=== PATIENT | male | born 1965 | race American Indian/Alaskan Native ===

== ENCOUNTER 2017-11-15 02:00 | Emergency (ER) | payer MEDICAID ==
[2017-11-15 03:20] VITALS: BP 161/109
[2017-11-15 03:48] LABS: Basophils % (Auto) 0.5 % (0.0-1.8); Hematocrit 42.4 % (35.5-45.6); Hemoglobin 14.2 gm/dl (11.8-15.2); Lymphocytes # (Auto) 1.8 K/mm3 (1.2-5.4); Lymphocytes % (Auto) 44.3 % (13.4-35.0); Mean Corpuscular HGB Conc 34 % (32-34); Mean Corpuscular Hemoglobin 30 pg (28-32); Mean Corpuscular Volume 90 fl (84-94); Monocytes # (Auto) 0.4 K/mm3 (0.0-0.8); Monocytes % (Auto) 10.2 % (0.0-7.3); Platelet Count 206 K/mm3 (140-440); Red Blood Count 4.71 M/mm3 (3.65-5.03); Red Cell Distribution Width 15.4 % (13.2-15.2)
[2017-11-15 04:19] LABS: BUN/Creatinine Ratio 10; Blood Urea Nitrogen 8 mg/dL (9-20); Calcium 8.6 mg/dL (8.4-10.2); Hemolysis Index 6
== END 2017-11-15 03:30 | disposition left against medical advice (07) ==
LOC: ED 02:00
DX: R07.89 Other chest pain (principal); Z53.21 Procedure and treatment not carried out due to patient leaving prior to being seen by health care provider
CPT/HCPCS: 36415; 80048; 84484; 85025; 93005; 93010; G0480; 80320

== ENCOUNTER 2017-11-15 14:52 | Emergency (ER) | payer MEDICAID ==
[2017-11-15] MEDS ORDERED: ASPIRIN PO ONE (15:03)
[2017-11-15 15:44] LABS: Basophils % (Auto) 0.3 % (0.0-1.8); Eosinophils % (Auto) 0.6 % (0.0-4.3); Hematocrit 40.9 % (35.5-45.6); Hemoglobin 13.5 gm/dl (11.8-15.2); Lymphocytes # (Auto) 1.3 K/mm3 (1.2-5.4); Lymphocytes % (Auto) 34.3 % (13.4-35.0); Mean Corpuscular HGB Conc 33 % (32-34); Mean Corpuscular Hemoglobin 30 pg (28-32); Mean Corpuscular Volume 90 fl (84-94); Monocytes # (Auto) 0.3 K/mm3 (0.0-0.8); Monocytes % (Auto) 7.1 % (0.0-7.3); Platelet Count 206 K/mm3 (140-440); Red Blood Count 4.53 M/mm3 (3.65-5.03); Red Cell Distribution Width 15.4 % (13.2-15.2)
[2017-11-15 16:00] LABS: BUN/Creatinine Ratio 10; Blood Urea Nitrogen 7 mg/dL (9-20); Calcium 8.2 mg/dL (8.4-10.2); Hemolysis Index 1
[2017-11-15] MEDS ORDERED: APRESOLINE IV ONE (16:35)
[2017-11-15] MEDS ORDERED: TYLENOL PO ONE (16:36)
--- NOTE | 2017-11-15 16:42 | XRay Report ---
FINAL REPORT PROCEDURE: Chest. TECHNIQUE: Portable AP view. HISTORY: Chest pain. COMPARISON: No prior studies are available for comparison. FINDINGS: The heart and mediastinum appear normal. The lungs are clear and well expanded. There are no pleural effusions. The soft tissues and regional skeleton are unremarkable. IMPRESSION: Negative portable chest.
[2017-11-15 16:55] LABS: Bacteria,Urine 1+ /HPF (Negative); Bilirubin,Urine NEG (Negative); Blood,Urine SM (Negative); Color,Urine Straw (Yellow); Urobilinogen,Urine < 2.0 mg/dL (<2.0); WBC,Urine < 1.0 /HPF (0.0-6.0)
[2017-11-15 17:06] LABS: Amphetamine Screen,Urine PRESUMPTIVE NEGATIVE; Benzodiazepines Screen,Urine PRESUMPTIVE NEGATIVE; Cocaine Screen,Urine PRESUMPTIVE NEGATIVE; Methadone Screen,Urine PRESUMPTIVE NEGATIVE; Opiate Screen,Urine PRESUMPTIVE NEGATIVE
[2017-11-15 17:27] LABS: Cannabinoid Screen,Urine PRESUMPTIVE POSITIVE
--- NOTE | 2017-11-15 18:37 | Emergency Department Report ---
HPI - General Chief Complaint: Chest Pain Time Seen by Provider: 11/15/17 15:59 - HPI HPI: The patient is a 52-year-old male presents for evaluation of chest pain. The patient reports chest pain for the past one month, recurring and constant since last night, greater than 8 hours prior to my evaluation, currently mild in severity, aching in quality, and is exacerbated with movement or coughing. The patient has secondary complaint of dysuria also for the past month, moderate severity, and associated with increased urinary frequency. The patient denies fever, neck pain, parasthesias, dyspnea, cough, hemoptysis, palpitations, dizziness, syncope, unilateral leg swelling, calf muscle pain. Patient also denies cocaine use, history of DVT or PE, recent immobilization, or history of cancer. ED Past Medical Hx - Past Medical History Previous Medical History?: Yes Additional medical history: Fungal infection, kidney disease. Rock Jatin syndrome - Surgical History Past Surgical History?: No - Social History Smoking Status: Current Every Day Smoker Substance Use Type: Alcohol - Medications Home Medications: Home Medications Medication Instructions Recorded Confirmed Last Taken Type Econazole 1% [Spectazole] 1 applicatio TP BID 7 Days #1 tube 11/14/17 11/15/17 Unknown Rx HYDROcodone/APAP 7.5-325 [[place] 1 each PO Q6HR PRN #14 tablet 11/14/17 11/15/17 Unknown Rx 7.5/325] cephALEXin [Keflex] 500 mg PO Q8HR 10 Days #30 cap 11/14/17 11/15/17 Unknown Rx ED Review of Systems ROS: Stated complaint: CHEST PAIN Other details as noted in HPI Constitutional: denies: fever ENT: denies: throat or neck pain Respiratory: denies: cough, shortness of breath Cardiovascular: reports: chest pain Endocrine: denies unexplained weight loss or gain Gastrointestinal: denies: abdominal pain, nausea Genitourinary: denies: dysuria Musculoskeletal: denies: leg swelling Skin: denies: rash Neurological: denies: headache Hematological/Lymphatic: denies: easy bleeding or easy bruising Psych: denies sadness or hopelessness Physical Exam - Physical Exam Vital Signs: Vital Signs 11/15/17 11/15/17 11/15/17 15:00 16:43 16:44 Temperature 98.6 F Pulse Rate 105 H 65 Respiratory 16 16 Rate Blood Pressure 201/103 152/91 Blood Pressure 152/91 [Left] O2 Sat by Pulse 97 96 Oximetry Physical Exam: General: well-nourished, well-developed, no acute distress Head: Normocephalic, atraumatic Eyes: normal sclera ENT: Mucous membranes are pale and dry Neck: trachea midline, neck supple, No neck stiffness, no cervical adenopathy Respiratory: Breath sounds equal bilaterally, no wheezing, rales, or rhonchi Cardio: S1 and S2 present, no murmurs, rubs, gallops, capillary refill is delayed Abdomen: Normoactive bowel sounds, soft abdomen, no rigidity, no guarding or rebound tenderness Chest WALL/Back: No tenderness to palpation of the chest wall, no CVA tenderness with percussion Musc: No pitting edema Skin: No rash Neuro: no facial drooping, normal speech Psych: Normal affect ED Course Vital Signs 11/15/17 11/15/17 11/15/17 15:00 16:43 16:44 Temperature 98.6 F Pulse Rate 105 H 65 Respiratory 16 16 Rate Blood Pressure 201/103 152/91 Blood Pressure 152/91 [Left] O2 Sat by Pulse 97 96 Oximetry ED Medical Decision Making - Lab Data Result diagrams: 11/15/17 15:28 11/15/17 15:28 - Medical Decision Making The patient was seen and examined by myself. The patient is placed on a groundwater monitoring technician and continuous pulse ox. On initial evaluation, the patient was found to be in no distress. EKG was negative for findings suggestive of acute cardiac infarct. Labs and imaging are obtained. The patient is given pain medicine. Chest x-ray is negative for pneumothorax, focal consolidation, pulmonary vascular congestion, pleural effusion, or other obvious acute cardiopulmonary disease process. Lab results revealed elevated alcohol level of 0.28, and otherwise labs were non-concerning including levels of troponin, WBC, hemoglobin, hematocrit, electrolytes, renal function, and urinalysis. The patient is given a banana bag infusion for treatment of his dehydration. The patient was reevaluated and reported that their symptoms were markedly improved. As the patient has a ROSELIA risk score less than 2, and a well's score less than 2, the patient is at low risk of ACS or pulmonary emboli etiology of their symptoms. The patient is stable for discharge with outpatient follow-up. The patient is given follow-up and return instructions. The patient expressed understanding and agreed with the plan. The patient is discharged in stable condition. Critical care attestation.: If time is entered above; I have spent that time in minutes in the direct care of this critically ill patient, excluding procedure time. ED Disposition Clinical Impression: Acute chest pain, Dehydration, Dysuria, Polysubstance abuse Alcohol intoxication Qualifiers: Complication of substance-induced condition: uncomplicated Qualified Code(s): F10.920 - Alcohol use, unspecified with intoxication, uncomplicated Disposition: DC-01 TO HOME OR SELFCARE Is pt being admited?: No Does the pt Need Aspirin: No Condition: Stable Instructions: Chest Pain (ED) Referrals: PRIMARY CARE, [Primary Care Provider] - 3-5 Days Time of Disposition: 18:47
[2017-11-15] MEDS ORDERED: VITAMIN B-1 100 MG, FOLVITE 1 MG, INFUVITE 10 ML in NACL 0.9% 1000 ML 1,000 ML IV ONE (19:00)
[2017-11-16 10:55] VITALS: BP 124/82
== END 2017-11-16 10:55 | disposition home or self-care (01) ==
LOC: ED 14:52
DX: R07.89 Other chest pain (principal); E86.0 Dehydration; R30.0 Dysuria; R35.0 Frequency of micturition; F10.920 Alcohol use, unspecified with intoxication, uncomplicated; F19.10 Other psychoactive substance abuse, uncomplicated; F17.200 Nicotine dependence, unspecified, uncomplicated
CPT/HCPCS: 36415; 71045; 80048; 80307; 81001; 84484; 85025; 93005; 93010; 96365; 96366; 99285; G0480; J3411; J7030; 80320

== ENCOUNTER 2019-06-09 20:36 | Emergency (ER) | payer MEDICAID ==
[2019-06-09] MEDS ORDERED: SODIUM CHLORIDE 0.9% 1000 ML 1,000 ML IV ONE (22:14)
[2019-06-09] MEDS ORDERED: propofoL 200 MG/20 ML VIAL IV ONE (22:14)
[2019-06-09] MEDS ORDERED: KETAMINE 500 MG/5 ML VIAL MDV IV ONE (22:14)
--- NOTE | 2019-06-09 22:16 | Emergency Department Report ---
HPI - General Chief Complaint: Extremity Injury, Upper Time Seen by Provider: 06/09/19 22:09 - HPI HPI: 53-year-old -[place] male presents to the emergency department with complaint of a 2-day history of right shoulder pain and what appears to be a right shoulder dislocation. The patient was working on a roof when a large pack of shingles came down and hit him on the shoulder. He has been having decreased range of motion and pain since that time. He is left-hand dominant. Otherwise denies any past medical history. He has not taken anything for his symptoms prior to presentation today. ED Past Medical Hx - Past Medical History Additional medical history: Fungal infection, kidney disease. Rock Jatin syndrome - Social History Smoking Status: Current Every Day Smoker Substance Use Type: None - Medications Home Medications: Home Medications Medication Instructions Recorded Confirmed Last Taken Type Econazole 1% [Spectazole] 1 applicatio TP BID 7 Days #1 tube 11/14/17 11/15/17 Unknown Rx HYDROcodone/APAP 7.5-325 [[place] 1 each PO Q6HR PRN #14 tablet 11/14/17 11/15/17 Unknown Rx 7.5/325] cephALEXin [Keflex] 500 mg PO Q8HR 10 Days #30 cap 11/14/17 11/15/17 Unknown Rx ED Review of Systems ROS: Stated complaint: RT SIDE PAIN Other details as noted in HPI Comment: All other systems reviewed and negative Constitutional: denies: chills, fever Eyes: denies: eye pain, vision change ENT: denies: ear pain, throat pain Respiratory: denies: cough, shortness of breath Cardiovascular: denies: chest pain, palpitations Gastrointestinal: denies: abdominal pain, vomiting Genitourinary: denies: dysuria, discharge Musculoskeletal: arthralgia. denies: back pain Skin: denies: rash, lesions Neurological: denies: numbness, paresthesias Physical Exam - Physical Exam Vital Signs: Vital Signs 06/09/19 21:20 Temperature 98.3 F Pulse Rate 94 H Respiratory 20 Rate Blood Pressure 139/93 O2 Sat by Pulse 96 Oximetry Physical Exam: GENERAL: The patient is well-developed well-nourished. HENT: Normocephalic. Atraumatic. Patient has moist mucous membranes. EYES: Extraocular motions are intact. NECK: Supple. Trachea is midline. CHEST/LUNGS: Clear to auscultation. There is no respiratory distress noted. HEART/CARDIOVASCULAR: Regular. There is no tachycardia. ABDOMEN: Abdomen is soft, nontender. Patient has normal bowel sounds. SKIN: Skin is warm and dry. NEURO: The patient is awake, alert, and oriented. The patient is cooperative. The patient has no focal neurologic deficits. Normal speech. MUSCULOSKELETAL: Tenderness to palpation of the right shoulder. The right upper extremity is held in internal rotation against the body. Decreased range of motion of the right arm secondary to shoulder pain. Radial pulse +2/4 and capillary refill less than 2 seconds to the affected right upper extremity. ED Course Vital Signs 06/09/19 21:20 Temperature 98.3 F Pulse Rate 94 H Respiratory 20 Rate Blood Pressure 139/93 O2 Sat by Pulse 96 Oximetry - Moderate Sedation Indications: fracture/dislocation redu ASA Class: I Mallampati Airway Score: 1 Time of Last PO Intake: 18:00 Preparation: impact retail service merchandiser applied, pulse oximeter, capnometry used, supplemental O2 applied, suction/airway equipment at bedside, IV secured Ketamine: IV Ketamine Dose: 40 IV Propofol Dose (mgs): 30 Complications: none Patient Tolerated Procedure: well - Orthopedic Joint Reduction Joint #1 Consent Obtained: verbal consent, written consent Time Out Performed: Yes Side: right Joint Reduction Location: shoulder Analgesia: moderate sedation Shoulder Technique Used (if applicable): traction/counter-traction, external rotation Post-Reduction Neuro Exam: intact Post-Reduction Vascular Exam: intact Post Reduction X-Ray Obtained: Yes Post Reduction X-Ray Results: reduced Splint Applied: Yes Patient Tolerated Procedure: well ED Medical Decision Making - Lab Data Result diagrams: 06/10/19 00:32 06/10/19 00:32 - Radiology Data Radiology results: image reviewed interpreted by me: X-ray of the right shoulder shows a anterior right shoulder dislocation. Postreduction x-ray shows appropriate placement of the humeral head into the glenohumeral joint. - Medical Decision Making This patient presents with a 2-day history of right shoulder dislocation. He is neurovascularly intact. X-ray confirmed an anterior dislocation. A conscious sedation was done per the procedure section with reduction of the dislocation. The patient is neurovascular intact after this procedure as well. Postpro cedural x-ray confirms appropriate reduction. The patient is slightly intoxicated with a blood alcohol level of 0.12. However he is arousable, oriented and appears to have come out of the conscious sedation. The patient will receive a liter of IV fluid resuscitation and then will be discharged to the care of a friend or family member. Critical Care Time: No Critical care attestation.: If time is entered above; I have spent that time in minutes in the direct care of this critically ill patient, excluding procedure time. ED Disposition Clinical Impression: Shoulder dislocation Qualifiers: Encounter type: initial encounter Laterality: right Qualified Code(s): S43.004A - Unspecified dislocation of right shoulder joint, initial encounter Alcohol intoxication Qualifiers: Complication of substance-induced condition: uncomplicated Qualified Code(s): F10.920 - Alcohol use, unspecified with intoxication, uncomplicated Hypertension Qualifiers: Hypertension type: essential hypertension Qualified Code(s): I10 - Essential (primary) hypertension Disposition: TO HOME OR SELFCARE Is pt being admited?: No Condition: Stable Instructions: Shoulder Dislocation (ED), Moderate Sedation (ED), Hypertension (ED) Additional Instructions: I have given you a referral for a local orthopedist, Dr. Ovalle, to follow-up regarding your shoulder dislocation. Return to the emergency department with any worsening of your symptoms or any acute distress. Referrals: GIL DOS SANTOS MD [Primary Care Provider] - 2-3 Days NASRA OVALLE MD [Staff Physician] - 2-3 Days Time of Disposition: 01:15
--- NOTE | 2019-06-09 22:35 | XRay Report ---
RIGHT SHOULDER 2 VIEWS INDICATION / CLINICAL INFORMATION: Right shoulder pain and swelling COMPARISON: None available. FINDINGS: BONES / JOINT(S): There is inferior and medial displacement of the right humeral head in relationship to the glenoid. I do not identify an associated fracture. There are mild degenerative changes involv ing the acromioclavicular joint. No other abnormality is identified. SOFT TISSUES: No significant abnormality. ADDITIONAL FINDINGS: The visualized portion of the right lung is clear. IMPRESSION: Anterior dislocation of the right shoulder. Signer Name: Turner Ac MD Signed: 06/09/2019 10:30 PM Workstation Name: [id number]
--- NOTE | 2019-06-09 23:58 | XRay Report ---
RIGHT SHOULDER 1 VIEW 11:36 PM INDICATION / CLINICAL INFORMATION: Postreduction. COMPARISON: Earlier today at 10:00 PM. FINDINGS: BONES / JOINT(S): The previously described anterior dislocation of the glenohumeral joint has been re duced. No associated fracture is seen. SOFT TISSUES: No significant abnormality. ADDITIONAL FINDINGS: None. IMPRESSION: Interval reduction of the previously described anterior dislocation of the right shoulder . Signer Name: Turner Ac MD Signed: 06/09/2019 11:54 PM Workstation Name: [id number]
[2019-06-10 00:50] LABS: Basophils % (Auto) 0.6 % (0.0-1.8); Eosinophils % (Auto) 0.9 % (0.0-4.3); Hemoglobin 13.1 gm/dl (11.8-15.2); Lymphocytes # (Auto) 1.3 K/mm3 (1.2-5.4); Lymphocytes % (Auto) 23.9 % (13.4-35.0); Mean Corpuscular HGB Conc 33 % (32-34); Mean Corpuscular Volume 91 fl (84-94); Monocytes # (Auto) 0.5 K/mm3 (0.0-0.8); Monocytes % (Auto) 8.7 % (0.0-7.3); Platelet Count 220 K/mm3 (140-440); Red Blood Count 4.39 M/mm3 (3.65-5.03)
[2019-06-10 01:05] LABS: BUN/Creatinine Ratio 7; Blood Urea Nitrogen 4 mg/dL (9-20); Calcium 8.3 mg/dL (8.4-10.2); Hemolysis Index 17
[2019-06-10] MEDS ORDERED: SODIUM CHLORIDE 0.9% 1000 ML 1,000 ML IV ONE (01:11)
[2019-06-10 04:52] VITALS: BP 173/92
== END 2019-06-10 03:40 | disposition home or self-care (01) ==
LOC: ED 20:36
DX: S43.004A Unspecified dislocation of right shoulder joint, initial encounter (principal); F10.920 Alcohol use, unspecified with intoxication, uncomplicated; I10 Essential (primary) hypertension; F17.200 Nicotine dependence, unspecified, uncomplicated; Z88.2 Allergy status to sulfonamides; Z79.899 Other long term (current) drug therapy; W22.8XXA Striking against or struck by other objects, initial encounter; Y93.89 Activity, other specified; Y92.89 Other specified places as the place of occurrence of the external cause; Y99.8 Other external cause status
CPT/HCPCS: 23650; 36415; 73020; 73030; 80048; 85025; 96374; 96375; 99284; J2704; J7030; 80320; G0480

== ENCOUNTER 2020-08-26 15:56 | Emergency (ER) | payer MEDICAID ==
--- NOTE | 2020-08-26 17:40 | Event Note ---
ED Screening Note Date of service: 08/26/20 Time: 17:36 ED Screening Note: 55 y/o male pt w/ hx of alcohol use presents to ED w/ complaints of hematemesis starting last night. Pt estimates he experienced approximately three episodes accompanied by bright red blood. Admits to alcohol consumption prior to onset of hematemesis. Pt is not anticoagulated. States he has been taking his cousin's Amoxicillin for two weeks in an attempt to self-treat an "infection" on his hands and feet. No black/bloody stools. General: Awake, appropriately interactive, no acute distress. Neck: Supple. Full range of motion intact. Cardiovascular: Normal peripheral perfusion. Pulmonary: No respiratory distress. Patient is speaking normally without use of accessory muscles. Neurological: No facial asymmetry. Speech is clear. Follows commands. Patient is alert and oriented. Musculoskeletal: Moves all four extremities spontaneously with normal range of motion. Psych: Cooperative. Appropriate mood and affect. I have greeted and performed a focused rapid initial assessment of this patient. A comprehensive ED assessment and evaluation of the patient, analysis of all test results, and completion of the medical decision-making process will be conducted by additional ED providers. This initial assessment/diagnostic orders/clinical plan/treatment(s) is/are subject to change based on patients health status, clinical progression and re-assessment. Further treatment and workup at subsequent clinical provider's discretion. Patient/guardian urged not to elope from the ED as their condition may be serious if not clinically assessed and managed.
--- NOTE | 2020-08-26 18:13 | XRay Report ---
CHEST 2 VIEWS INDICATION: hematemesis. COMPARISON: FINDINGS: Support devices: None. Heart: Within normal limits. Lungs: No acute air space or interstitial disease. Pleura: No significant pleural effusion. No pneumothorax. Additional findings: None. IMPRESSION: 1. No acute findings. Signer Name: Tre Gaona MD Signed: 08/26/2020 6:09 PM Workstation Name: [id number]
[2020-08-26 19:03] LABS: Basophils # (Auto) 0.1 K/mm3 (0.0-0.1); Basophils % (Auto) 1.9 % (0.0-1.8); Eosinophils % (Auto) 1.1 % (0.0-4.3); Hematocrit 34.6 % (35.5-45.6); Hemoglobin 12.5 gm/dl (11.8-15.2); Lymphocytes % (Auto) 26.5 % (13.4-35.0); Mean Corpuscular HGB Conc 36 % (32-34); Mean Corpuscular Volume 102 fl (84-94); Monocytes # (Auto) 0.3 K/mm3 (0.0-0.8); Monocytes % (Auto) 8.3 % (0.0-7.3); Platelet Count 229 K/mm3 (140-440); Red Cell Distribution Width 15.6 % (13.2-15.2)
[2020-08-26 19:20] LABS: INR 0.89 (0.87-1.13)
[2020-08-26 19:21] LABS: Partial Thromboplastin Time 34.1 Sec. (24.2-36.6)
[2020-08-26 19:28] LABS: Alanine Aminotransferase 28 units/L (7-56); Albumin 3.8 g/dL (3.9-5); Blood Urea Nitrogen 6 mg/dL (9-20); Calcium 8.9 mg/dL (8.4-10.2); Hemolysis Index 10
[2020-08-26 19:31] LABS: BUN/Creatinine Ratio 9
--- NOTE | 2020-08-26 21:25 | Emergency Department Report ---
HPI - General Chief Complaint: GI Bleed Time Seen by Provider: 08/26/20 20:20 - HPI HPI: Room 3 The patient is a 55-year-old male present with a chief complaint of vomiting with blood. Patient states the symptoms occurred last night approximate 4 hours after eating spaghetti. The patient states he had episode of nausea vomiting and noticed streaks of blood in the vomitus. The patient states again this morning at approximately 07: 00 he had a second episode of vomiting while in the bed and again noticed streaks of blood in the vomitus. Patient denies abdominal pain. Patient states his last bowel movement occurred last night and was within normal limits. Patient denies bright red blood per rectum or melena. Patient also complains of pain in his hands and feet which he's suffered from for several years ED Past Medical Hx - Past Medical History Previous Medical History?: Yes Additional medical history: Fungal infection, kidney disease. 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 Skin infection to hands and lips - Surgical History Past Surgical History?: No - Family History Family history: no significant - Social History Smoking Status: Current Some Day Smoker (Cigars) Substance Use Type: None (Denies illicit drug use), Alcohol (Occasional) - Medications Home Medications: Home Medications Medication Instructions Recorded Confirmed Last Taken Type Econazole 1% [Spectazole] 1 applicatio TP BID 7 Days #1 tube 11/14/17 11/15/17 Unknown Rx HYDROcodone/APAP 7.5-325 [[place] 1 each PO Q6HR PRN #14 tablet 11/14/17 11/15/17 Unknown Rx 7.5/325] cephALEXin [Keflex] 500 mg PO Q8HR 10 Days #30 cap 11/14/17 11/15/17 Unknown Rx Famotidine [Pepcid] 20 mg PO BID #20 tablet 08/26/20 Unknown Rx HYDROcodone/APAP 5-325 [[place] 1 - 2 each PO Q6HR PRN #10 tablet 08/26/20 Unknown Rx 5/325] ED Review of Systems ROS: Stated complaint: FEET SWELLING, VOMITING BLOOD Other details as noted in HPI Constitutional: fever Eyes: denies: eye pain ENT: denies: throat pain Respiratory: no symptoms reported Cardiovascular: denies: chest pain Endocrine: no symptoms reported Gastrointestinal: nausea, vomiting, hematemesis. denies: abdominal pain, melena, hematochezia Genitourinary: denies: dysuria Musculoskeletal: denies: back pain Neurological: denies: headache Physical Exam - Physical Exam Vital Signs: Vital Signs 08/26/20 17:25 Temperature 98.4 F Pulse Rate 77 Respiratory 18 Rate Blood Pressure 138/80 O2 Sat by Pulse 95 Oximetry Physical Exam: GENERAL: The patient is well-developed well-nourished male lying on stretcher not appearing to be in acute distress. [] HEENT: Normocephalic. Atraumatic. Extraocular motions are intact. Patient has moist mucous membranes. NECK: Supple. Trachea midline CHEST/LUNGS: Clear to auscultation. There is no respiratory distress noted. HEART/CARDIOVASCULAR: Regular. There is no tachycardia. There is no gallop rub or murmur. ABDOMEN: Abdomen is soft, nontender. Patient has normal bowel sounds. There is no abdominal distention. SKIN: There is no rash. There is no edema. There is no diaphoresis. NEURO: The patient is awake, alert, and oriented. The patient is cooperative. The patient has no focal neurologic deficits. The patient has normal speech MUSCULOSKELETAL:There is no evidence of acute injury. RECTAL: Guaiac negative brown stool ED Course Vital Signs 08/26/20 17:25 Temperature 98.4 F Pulse Rate 77 Respiratory 18 Rate Blood Pressure 138/80 O2 Sat by Pulse 95 Oximetry ED Medical Decision Making - Lab Data Result diagrams: 08/26/20 18:32 08/26/20 18:32 Laboratory Tests 08/26/20 08/26/20 08/26/20 18:30 18:32 18:32 WBC 3.9 L RBC 3.40 L Hgb 12.5 Hct 34.6 L MCV 102 H MCH 37 H MCHC 36 H RDW 15.6 H Plt Count 229 Lymph % (Auto) 26.5 [place] % (Auto) 8.3 H Eos % (Auto) 1.1 Baso % (Auto) 1.9 H Lymph # (Auto) 1.0 L [place] # (Auto) 0.3 Eos # (Auto) 0.0 Baso # (Auto) 0.1 Seg Neutrophils % 62.2 Seg Neutrophils # 2.4 PT 12.6 INR 0.89 APTT 34.1 Sodium Potassium Chloride Carbon Dioxide Anion Gap BUN Creatinine Estimated GFR BUN/Creatinine Ratio Glucose Calcium Magnesium Total Bilirubin AST ALT Alkaline Phosphatase Ammonia Total Protein Albumin Albumin/Globulin Ratio Lipase Plasma/Serum Alcohol Blood Type O NEGATIVE Antibody Screen Negative 08/26/20 08/26/20 08/26/20 18:32 18:32 18:32 WBC RBC Hgb Hct MCV MCH MCHC RDW Plt Count Lymph % (Auto) [place] % (Auto) Eos % (Auto) Baso % (Auto) Lymph # (Auto) [place] # (Auto) Eos # (Auto) Baso # (Auto) Seg Neutrophils % Seg Neutrophils # PT INR APTT Sodium 138 Potassium 3.5 L Chloride 103.6 Carbon Dioxide 20 L Anion Gap 18 BUN 6 L Creatinine 0.7 L Estimated GFR > 60 BUN/Creatinine Ratio 9 Glucose 94 Calcium 8.9 Magnesium 1.60 L Total Bilirubin < 0.20 AST 34 ALT 28 Alkaline Phosphatase 104 Ammonia 54.0 Total Protein 7.4 Albumin 3.8 L Albumin/Globulin Ratio 1.1 Lipase 44 Plasma/Serum Alcohol 0.02 Blood Type Antibody Screen - Radiology Data Radiology results: report reviewed (Chest x-ray), image reviewed (Chest x-ray) interpreted by me: Chest x-ray-no definite focal infiltrates, no pneumothorax. No foreign body seen [facility] [address] [place] [address] XRay Report Signed Patient: KYLE MIRANDA MR#: [id number] : 1965 Acct:[id number] Age/Sex: 55 / M ADM Date: 08/26/20 Loc: ED Attending Dr: Ordering Physician: HERNAN MULLER Date of Service: 08/26/20 Procedure(s): XR chest routine 2V Accession Number(s): [id number] cc: HERNAN MULLER Fluoro Time In Minutes: CHEST 2 VIEWS INDICATION: hematemesis. COMPARISON: FINDINGS: Support devices: None. Heart: Within normal limits. Lungs: No acute air space or interstitial disease. Pleura: No significant pleural effusion. No pneumothorax. Additional findings: None. IMPRESSION: 1. No acute findings. Signer Name: Tre Gaona MD Signed: 08/26/2020 6:09 PM Workstation Name: [id number] Transcribed By: WG Dictated By: Tre Gaona MD Electronically Authenticated By: Tre Gaona MD Signed Date/Time: 08/26/201808 DD/ 08 TD/TT: Print Cancel - Differential Diagnosis Gastritis, peptic ulcer disease, Critical care attestation.: If time is entered above; I have spent that time in minutes in the direct care of this critically ill patient, excluding procedure time. ED Disposition Clinical Impression: Nausea & vomiting, Gastritis Disposition: - TO HOME OR SELFCARE Is pt being admited?: No Does the pt Need Aspirin: No Condition: Stable Instructions: Nausea and Vomiting, Adult, Gastritis, Adult, [id number] Additional Instructions: Return to the emergency department should you develop worsening symptoms, inability to tolerate food or liquids, high fever or any other concerns Prescriptions: HYDROcodone/APAP 5-325 [[place] 5/325] 1 - 2 each PO Q6HR PRN #10 tablet PRN Reason: Pain Famotidine [Pepcid] 20 mg PO BID #20 tablet Referrals: DECLAN SEXTON MD [Staff Physician] - 3-5 Days (Dr. Sexton is a gastroenter ologist. Please follow-up with him for further evaluation) PRIMARY MD LEVON [Primary Care Provider] - 3-5 Days MELISSA MOREAU MD [Staff Physician] - 3-5 Days (Dr Moreau is a commercial driver's license driver. Please follow-up with him for further evaluation) Forms: Accompanied Note Time of Disposition: 22:00
[2020-08-26 21:41] VITALS: BP 150/87
== END 2020-08-26 22:44 | disposition home or self-care (01) ==
LOC: ED 15:56
DX: K29.70 Gastritis, unspecified, without bleeding (principal); R11.2 Nausea with vomiting, unspecified; F17.200 Nicotine dependence, unspecified, uncomplicated; Z79.899 Other long term (current) drug therapy; Z88.2 Allergy status to sulfonamides
CPT/HCPCS: 36415; 71046; 80053; 80320; 82140; 82271; 83690; 83735; 85025; 85610; 85730; 86850; 86900; 86901; G0480

== ENCOUNTER 2021-10-22 15:25 | Emergency (ER) | payer MEDICAID ==
[2021-10-22] MEDS ORDERED: ONDANSETRON 4 MG/2 ML INJ IM ONE (15:58)
[2021-10-22] MEDS ORDERED: fentaNYL 100 MCG/2 ML INJ IM ONE (15:58)
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
[2021-10-22] MEDS ORDERED: BACITRACIN/POLYMYXIN B OINT 28.35 GM TP ONE (18:34)
[2021-10-22] MEDS ORDERED: NEOMY 3.5 MG/BACIT 400 UNITS/POLY B 5000 UNITS/GM OINT PACKET TP ONE (18:36)
[2021-10-22 19:44] VITALS: BP 174/86
== END 2021-10-22 19:43 | disposition home or self-care (01) ==
LOC: ED 15:25
DX: S92.311A Displaced fracture of first metatarsal bone, right foot, initial encounter for closed fracture (principal); S82.491A Other fracture of shaft of right fibula, initial encounter for closed fracture; F17.200 Nicotine dependence, unspecified, uncomplicated; X58.XXXA Exposure to other specified factors, initial encounter; Y93.9 Activity, unspecified; Y92.89 Other specified places as the place of occurrence of the external cause; Y99.8 Other external cause status
CPT/HCPCS: 29515; 73590; 73630; 96372; 99284; J2405; J3010